=== PATIENT | female | born 1950 ===

== ENCOUNTER 2023-01-13 04:33 | Day surgery (SDC) | payer OTHER ==
[2023-01-07 08:31] VITALS: BMI 35.5
[2023-01-13 14:16] VITALS: BP 114/63; PULSE 60; RESP 14; TEMP 97.7
== END 2023-01-13 10:15 | disposition home or self-care (01) ==
LOC: JASU-ENDO 04:33
PROVIDERS: ATTEND Internal Medicine Gastroenterology
PROC: 0D5L8ZZ Destruction of Transverse Colon, Via Natural or Artificial Opening Endoscopic (ICD-10-PCS; principal; 2023-01-13 09:30)
DX: Z12.11 Encounter for screening for malignant neoplasm of colon (principal); D12.3 Benign neoplasm of transverse colon; Z86.010 Personal history of colon polyps
CPT/HCPCS: 88305-TC; 88342-TC